=== PATIENT | male | born 1970 | race Caucasian/White ===

== ENCOUNTER 2021-05-16 10:34 | Emergency (ER) | payer SELFPAY ==
[~2021-05-16] VITALS: Ht 167.6 cm; Wt 113.0 kg
[2021-05-16] MEDS ORDERED: TRAMADOL 50MG TABLET PO ONE (11:45)
[2021-05-16] MEDS ORDERED: TRAM50TA3 MT (11:51)
[2021-05-16] MEDS ORDERED: IBUP-2029 MT (11:51)
[2021-05-16 12:03] VITALS: BP 155/96
== END 2021-05-16 13:08 | disposition home or self-care (01) ==
LOC: ER 12:55
DX: M79.661 Pain in right lower leg (principal); E11.9 Type 2 diabetes mellitus without complications; Z98.890 Other specified postprocedural states
CPT/HCPCS: 99283; Z7610